=== PATIENT | male | born 1965 | race Caucasian/White ===

== ENCOUNTER 2018-02-23 11:52 | Observation (INO) ==
--- NOTE | 2018-02-23 13:33 | ED ---
HPI General Chief Complaint: Chest Pain Stated Complaint: Chest Pain Time Seen by Provider: 02/23/18 13:07 Source: patient and EMS Mode of arrival: EMS Limitations: no limitations History of Present Illness HPI narrative: 53-year-old male patient presents to the ER today for substernal 9 out of 10 chest pains nausea, and shortness of breath. He does not know of any exacerbating alleviating factors. He states he has not had similar chest pains in the past. He denies any coughing, fevers, or other symptoms Complete Quality Measures for STEMI Alert Patients Related Data Home Medications Medication Instructions Recorded Confirmed No Known Home Medications 02/23/18 02/23/18 Allergies Allergy/AdvReac Type Severity Reaction Status Date / Time No Known Allergies Allergy Verified 02/23/18 12:17 Review of Systems Except as stated in HPI: all other systems reviewed are negative [facility] Medical History Medical History Patient denies medical problems (Acute) Surgical History Surgical History No history of previous surgery (Acute) Social History Social History Substance History: No History of Abuse Second Hand Smoke Exposure: Yes Smoking Status: Current every day smoker Tobacco Type: Cigarettes How Often Do You Have a Drink Containing Alcohol: 4 or more times a week Recent Travel in [facility] within the Last 8 Weeks: No Recent Out of Country Travel within the Last 8 Weeks: No Immunization History Tetanus Immunization: Unsure Hx Influenza Vaccine This Season: No Exam Narrative Exam Narrative: GENERAL: Well-developed middle-age male patient currently in moderate distress. Awake and oriented 3. SKIN: Focused skin assessment warm/diaphoretic. HEAD: Atraumatic. Normocephalic. EYES: Pupils equal and round. No scleral icterus. No injection or drainage. ENT: No nasal bleeding or discharge. Mucous membranes pink and moist. NECK: Trachea midline. No JVD. Supple. CARDIOVASCULAR: Regular rate and rhythm. No murmur appreciated. Pulses are present and equal bilaterally. RESPIRATORY: No accessory muscle use. Clear to auscultation. Breath sounds equal bilaterally. GASTROINTESTINAL: Abdomen soft, non-tender, nondistended. Hepatic and splenic margins not palpable. MUSCULOSKELETAL: No obvious deformities. No clubbing. No cyanosis. No edema. NEUROLOGICAL: Awake and alert. No obvious cranial nerve deficits. Motor grossly within normal limits. Normal speech. PSYCHIATRIC: Appropriate mood and affect; insight and judgment normal. Course Initial Documented Vital Signs Temperature 98 F 02/23/18 12:05 Pulse Rate 86 02/23/18 12:05 Respiratory Rate 21 02/23/18 12:05 Blood Pressure 137/82 02/23/18 12:05 Pulse Oximetry 88 L 02/23/18 12:05 Last Documented Vital Signs Temperature 98 F 02/23/18 12:05 Pulse Rate 86 02/23/18 12:05 Respiratory Rate 19 02/23/18 12:26 Blood Pressure 137/82 02/23/18 12:05 Pulse Oximetry 88 L 02/23/18 12:05 Medical Decision Making MDM Narrative Medical decision making narrative: EKG shows no signs of acute ST elevations or depressions. Frequent PVCs identified. Lab work was fairly unremarkable and chest x-ray was unremarkable as well. At this point, my plan would be to admit him for further evaluation in the chest pain center. Differential Diagnosis Differential Diagnosis: ACS versus anxiety versus dysrhythmias Lab Data Lab results reviewed: Yes I reviewed the patient's lab results. Result diagrams: 02/23/18 12:25 02/23/18 12:25 Lab Results 02/23/18 02/23/18 02/23/18 Range/Units 12:25 12:25 12:25 WBC 8.5 (4.0-11.0) th/mm3 RBC 4.49 L (4.50-5.90) mil/mm3 Hgb 15.2 (13.0-17.0) gm/dL Hct 45.0 (39.0-51.0) % MCV 100.4 H (80.0-100.0) fL MCH 33.9 (27.0-34.0) pg MCHC 33.8 (32.0-36.0) % RDW 17.7 H (11.6-17.2) % Plt Count 262 (150-450) th/mm3 MPV 7.6 (7.0-11.0) fL Neut % (Auto) 62.0 (16.0-70.0) % Lymph % (Auto) 27.3 (9.0-44.0) % Cook % (Auto) 8.9 H (0.0-8.0) % Eos % (Auto) 1.2 (0.0-4.0) % Baso % (Auto) 0.6 (0.0-2.0) % Neut # (Auto) 5.3 (1.8-7.7) th/mm3 Lymph # (Auto) 2.3 (1.0-4.8) th/mm3 Cook # (Auto) 0.8 (0.0-0.9) th/mm3 Eos # (Auto) 0.1 (0.0-0.4) th/mm3 Baso # (Auto) 0.1 (0.0-0.2) th/mm3 WBC Differential . Differential Comment Auto diff final PT 10.6 (9.8-11.6) sec INR 1.0 Ratio APTT 24.5 (24.3-30.1) sec Sodium (136-145) meq/L Potassium (3.5-5.1) meq/L Chloride (98-107) meq/L Carbon Dioxide (21.0-32.0) meq/L Anion Gap (5-15) meq/L BUN (7-18) mg/dL Creatinine (0.60-1.30) mg/dL Estimated GFR (>89) mL/min Random Glucose (74-106) mg/dL Calcium (8.5-10.1) mg/dL Total Bilirubin (0.2-1.0) mg/dL AST (15-37) U/L ALT (12-78) U/L Alkaline Phosphatase (45-117) U/L Troponin I Less than 0.02 L (0.02-0.05) ng/mL Total Protein (6.4-8.2) g/dL Albumin (3.4-5.0) g/dL 02/23/18 Range/Units 12:25 WBC (4.0-11.0) th/mm3 RBC (4.50-5.90) mil/mm3 Hgb (13.0-17.0) gm/dL Hct (39.0-51.0) % MCV (80.0-100.0) fL MCH (27.0-34.0) pg MCHC (32.0-36.0) % RDW (11.6-17.2) % Plt Count (150-450) th/mm3 MPV (7.0-11.0) fL Neut % (Auto) (16.0-70.0) % Lymph % (Auto) (9.0-44.0) % Cook % (Auto) (0.0-8.0) % Eos % (Auto) (0.0-4.0) % Baso % (Auto) (0.0-2.0) % Neut # (Auto) (1.8-7.7) th/mm3 Lymph # (Auto) (1.0-4.8) th/mm3 Cook # (Auto) (0.0-0.9) th/mm3 Eos # (Auto) (0.0-0.4) th/mm3 Baso # (Auto) (0.0-0.2) th/mm3 WBC Differential Differential Comment PT (9.8-11.6) sec INR Ratio APTT (24.3-30.1) sec Sodium 135 L (136-145) meq/L Potassium 3.3 L (3.5-5.1) meq/L Chloride 99 (98-107) meq/L Carbon Dioxide 23.4 (21.0-32.0) meq/L Anion Gap 13 (5-15) meq/L BUN 5 L (7-18) mg/dL Creatinine 0.91 (0.60-1.30) mg/dL Estimated GFR 87 L (>89) mL/min Random Glucose 99 (74-106) mg/dL Calcium 8.1 L (8.5-10.1) mg/dL Total Bilirubin 0.4 (0.2-1.0) mg/dL AST 20 (15-37) U/L ALT 24 (12-78) U/L Alkaline Phosphatase 115 (45-117) U/L Troponin I (0.02-0.05) ng/mL Total Protein 6.4 (6.4-8.2) g/dL Albumin 2.9 L (3.4-5.0) g/dL Imaging Data Attestation: I personally reviewed and interpreted this imaging study as follows : Radiologist's impression: Chest X-Ray 02/23/18 13:07 CONCLUSION: Negative for acute process ECG Data EKG Prior to Arrival: Yes Attestation: I personally reviewed and interpreted this ECG as follows: Interpretation: EKG shows normal sinus rhythm with occasional PVCs, rate 96 bpm. No signs of acute ST elevations or depressions. Discharge Plan Discharge Disposition Patient Disposition: 30 Still Patient Discharge Condition Condition: Stable Discharge Details Anticipated Discharge Date: 02/23/18 Diagnosis: Chest pain Physicians Team ED Provider: Rafa Mackey Primary Care Provider: Primary Care Michelle Whitley Rxs /Orders / Referrals /Forms Prescriptions: No Action No Known Home Medications RF: 0 Discharge Instructions Patient Printed Instructions: Chest Pain (ED) Discharge Interventions Interventions: Vital Signs Last Done: 02/23/18 12:26 Status ED Status: With Doctor
[2018-02-23 13:50] LABS: Baso # (Auto) 0.1 th/mm3 (0.0-0.2); Baso % (Auto) 0.6 % (0.0-2.0); Eos # (Auto) 0.1 th/mm3 (0.0-0.4); Eos % (Auto) 1.2 % (0.0-4.0); Hemoglobin 15.2 gm/dL (13.0-17.0); Lymph # (Auto) 2.3 th/mm3 (1.0-4.8); Lymph % (Auto) 27.3 % (9.0-44.0); Mean Corpuscular HGB Conc 33.8 % (32.0-36.0); Mean Corpuscular Hemoglobin 33.9 pg (27.0-34.0); Mean Corpuscular Volume 100.4 fL (80.0-100.0); Mean Platelet Volume 7.6 fL (7.0-11.0); Mono # (Auto) 0.8 th/mm3 (0.0-0.9); Mono % (Auto) 8.9 % (0.0-8.0); Neut # (Auto) 5.3 th/mm3 (1.8-7.7); Platelet Count 262 th/mm3 (150-450); Red Blood Count 4.49 mil/mm3 (4.50-5.90); Red Cell Distribution Width 17.7 % (11.6-17.2); White Blood Count 8.5 th/mm3 (4.0-11.0)
--- NOTE | 2018-02-23 13:59 | XR ---
EXAM DATE: 02/23/2018 1:51 PM EDT AGE/SEX: 53 years / Male INDICATIONS: Left sided chest pain and shortness of breath. CLINICAL DATA: This is the patient's initial encounter. Patient reports that signs and symptoms have been present for 3 days and indicates a pain score of 5/10. MEDICAL/SURGICAL HISTORY: None. None. COMPARISON: No prior exams available for comparison. FINDINGS: A single AP view of the chest demonstrates the lungs to be symmetrically aerated without evidence of mass, infiltrate or effusion. The cardiomediastinal contours are unremarkable. Osseous structures a re intact. CONCLUSION: Negative for acute process Electronically signed by: Tom Lake MD 02/23/2018 1:57 PM EDT
[2018-02-23 14:00] LABS: Activated Partial Thrombo Time 24.5 sec (24.3-30.1); Prothrombin Time 10.6 sec (9.8-11.6)
[2018-02-23 14:18] LABS: Alanine Aminotransferase 24 U/L (12-78); Albumin 2.9 g/dL (3.4-5.0); Anion Gap 13 meq/L (5-15); Aspartate Aminotransferase 20 U/L (15-37); Blood Urea Nitrogen 5 mg/dL (7-18); Calcium 8.1 mg/dL (8.5-10.1); Carbon Dioxide 23.4 meq/L (21.0-32.0); Chloride 99 meq/L (98-107); Glomerular Filtration Rate 87 mL/min (>89); Glucose,Random 99 mg/dL (74-106); Potassium 3.3 meq/L (3.5-5.1); Sodium 135 meq/L (136-145)
[2018-02-23 14:20] LABS: Alkaline Phosphatase 115 U/L (45-117); Total Protein 6.4 g/dL (6.4-8.2)
[2018-02-23] MEDS ORDERED: Acetaminophen 500 MG Tablet PO PRN (16:34)
--- NOTE | 2018-02-23 16:34 | P.HPCA ---
History of Present Illness Primary Care Physician: No Primary Care Physician Chief Complaint: Chest pain History of Present Illness: 53-year-old male with history of hypertension (currently not taking any medications) and current smoker presents emergency room for further evaluation chest pain. Onset 7 AM. Location left anterior chest. Characterized as sharp , severe steady pain. No radiation. Associated symptoms nausea, dyspnea, diaphoresis. No particular movement or position made pain better or worse. Duration 3 hours before calling [facility]. Once [facility] arrived given 2 nitro sprays. Relief after second Nitro within a couple of minutes, stating pain went completely away. Currently reports left anterior chest pain with coughing or deep inspiration. Denies similar pain in the past. No known cardiac disease. Has not seen a primary care provider in years. No recent illness, injury, or trauma. No past cardiac testing. Family history noncontributory for early onset cardiovascular disease. - Diagnosis (1) Chest pain, atypical (2) Hypertension (3) Tobacco abuse (4) Alcohol abuse Review of Systems All other systems reviewed negative except as stated in [facility] PMF[facility] - History History Provided By: Patient, Teller Coordinator / EMT - Medical History Medical History: Medical History (Last Updated 02/23/18 @ 16:27 by JOHN Qureshi) Hypertension Patient denies medical problems - Surgical History Surgical History: Surgical History (Last Reviewed 02/23/18 @ 16:27 by JOHN Qureshi) No history of previous surgery - Tobacco History Second Hand Smoke Exposure: Yes Tobacco Use In Past 30 Days: Yes Smoking Status: Current every day smoker Tobacco Type: Cigarettes Packs Per Day: 1 Years Smoked: 20 - Alcohol History How Often Do You Have a Drink Containing Alcohol: 4 or more times a week (6-7 beers nightly) - Substance Use History Substance History: No History of Abuse - Travel History History of Recent Travel: No Recent Travel in the [place] Within the Last 8 Weeks: No Recent Travel Out of the Country Within the Last 8 Weeks: No - Immunization History Tetanus Immunization: Unsure Hx Influenza Vaccine This Season: No Medications and Allergies Active Medications: Active Medications Sodium Chloride (Ns Flush) 2 ml IV.FLUSH UNSCH PRN PRN Reason: FLUSH AFTER USING IV ACCESS Allergies Allergy/AdvReac Type Severity Reaction Status Date / Time No Known Allergies Allergy Verified 02/23/18 12:17 Home Medications Medication Instructions Recorded Confirmed Type No Known Home Medications 02/23/18 02/23/18 History Exam Vital signs: Vital Signs 02/23/18 12:05 02/23/18 12:26 02/23/18 13:16 Temperature 98 F Pulse Rate 86 Respiratory Rate 21 19 Blood Pressure 137/82 Pulse Oximetry 88 L 94 L 02/23/18 15:26 02/23/18 16:20 Temperature Pulse Rate 83 83 Respiratory Rate 16 17 Blood Pressure 149/89 H Pulse Oximetry 96 Intake & Output 02/22/18 02/23/18 02/23/18 18:59 06:59 18:59 Weight 136.078 kg Narrative: GENERAL: Alert WN, WD, NAD, pleasant, obese male, easily awakens from sleep. HEAD: NC, AT NECK: Supple, no masses, trachea midline CV: RRR, without murmur, rub, gallop, no JVD. Chest wall nontender with palpation. RESP: Diminished lungs throughout bilateral, no crackles, wheeze, rhonchi, symmetrical chest rise, nonlabored, able to speak in full sentences ABD: Soft, NT, ND, no masses, positive bowel tones EXT: Pulses +2x4, no dependent edema MS: Normal tone x4 extremities, nontender, no obvious deformities, full range of motion NEURO: CN II through CN XII grossly intact, motor strength 5/5 PSYCH: A+O x3, pleasant affect, appropriate speech, mood, insight and judgment SKIN: Normal turgor, normal texture, no lesions, no rashes, brisk cap refill, even hair distribution Results 02/23/18 12:25 02/23/18 12:25 Cardiac Enzymes 02/23/18 02/23/18 Range/Units 12:25 12:25 AST 20 (15-37) U/L Troponin I Less than 0.02 L (0.02-0.05) ng/mL Coagulation 02/23/18 Range/Units 12:25 PT 10.6 (9.8-11.6) sec APTT 24.5 (24.3-30.1) sec CBC 02/23/18 Range/Units 12:25 WBC 8.5 (4.0-11.0) th/mm3 RBC 4.49 L (4.50-5.90) mil/mm3 Hgb 15.2 (13.0-17.0) gm/dL Hct 45.0 (39.0-51.0) % Plt Count 262 (150-450) th/mm3 Neut # (Auto) 5.3 (1.8-7.7) th/mm3 Lymph # (Auto) 2.3 (1.0-4.8) th/mm3 [place] # (Auto) 0.8 (0.0-0.9) th/mm3 Eos # (Auto) 0.1 (0.0-0.4) th/mm3 Baso # (Auto) 0.1 (0.0-0.2) th/mm3 Comprehensive Metabolic Panel 02/23/18 Range/Units 12:25 Sodium 135 L (136-145) meq/L Potassium 3.3 L (3.5-5.1) meq/L Chloride 99 (98-107) meq/L Carbon Dioxide 23.4 (21.0-32.0) meq/L BUN 5 L (7-18) mg/dL Creatinine 0.91 (0.60-1.30) mg/dL Calcium 8.1 L (8.5-10.1) mg/dL AST 20 (15-37) U/L ALT 24 (12-78) U/L Alkaline Phosphatase 115 (45-117) U/L Total Protein 6.4 (6.4-8.2) g/dL Albumin 2.9 L (3.4-5.0) g/dL Intake and Output 02/23/18 02/23/18 02/23/18 06:59 14:59 22:59 Other: Weight 136.078 kg Patient Weight 02/24/18 06:59 Weight 136.078 kg EKG interpretations - EKG EKG results cardiology: sinus rhythm, normal axis, normal QRS, normal ST/T (nsr , pvc's) Caprini VTE Risk Assessment Caprini VTE Risk Assessment: No/Low Risk (score <= 1) Caprini Risk Assessment Model: Point Value = 1 Point Value = 2 Point Value = 3 Point Value = 5 Age 41-60 Minor surgery BMI > 25 kg/m2 Swollen legs Varicose veins or History of unexplained or recurrent spontaneous Oral contraceptives or hormone replacement Sepsis (< 1 month) Serious lung disease, including pneumonia (< 1 month) Abnormal pulmonary function Acute myocardial infarction Congestive heart failure (< 1 month) History of inflammatory bowel disease Medical patient at bed rest Age 61-74 Arthroscopic surgery Major open surgery (> 45 min) Laparoscopic surgery (> 45 min) Malignancy Confined to bed (> 72 hours) Immobilizing plaster cast Central venous access Age >= 75 History of VTE Family history of VTE Factor V Leiden Prothrombin [id number] Lupus anticoagulant Anticardiolipin antibodies Elevated serum homocysteine Heparin-induced thrombocytopenia Other congenital or acquired thrombophilia Stroke (< 1 month) Elective arthroplasty Hip, pelvis, or leg fracture Acute spinal cord injury (< 1 month) Prophylaxis Regimen: Total Risk Factor Score Risk Level Prophylaxis Regimen 0-1 Low Early ambulation 2 Moderate Order ONE of the following: *Sequential Compression Device (SCD) *Heparin 5000 units SQ BID 3-4 Higher Order ONE of the following medications: *Heparin 5000 units SQ TID *Enoxaparin/Lovenox 40 mg SQ daily (WT < 150 kg, CrCl > 30 mL/min) *Enoxaparin/Lovenox 30 mg SQ daily (WT < 150 kg, CrCl > 10-29 mL/min) *Enoxaparin/Lovenox 30 mg SQ BID (WT < 150 kg, CrCl > 30 mL/min) AND/OR *Sequential Compression Device (SCD) 5 or more Highest Order ONE of the following medications: *Heparin 5000 units SQ TID (Preferred with Epidurals) *Enoxaparin/Lovenox 40 mg SQ daily (WT < 150 kg, CrCl > 30 mL/min) *Enoxaparin/Lovenox 30 mg SQ daily (WT < 150 kg, CrCl > 10-29 mL/min) *Enoxaparin/Lovenox 30 mg SQ BID (WT < 150 kg, CrCl > 30 mL/min) AND *Sequential Compression Device (SCD) Assessment and Plan - Assessment (1) Chest pain, atypical Code(s): R07.89 - Other chest pain Status: Acute Plan: Admitted chest pain center. Continue ACS protocol. Will be seen evaluated by Dr. Aaliyah Ortiz. If ruled out likely will proceed with cardiac testing in a.m. This will be decided after evaluation by wet mixer. Verbalized understanding and agreeable plan of care. (2) Hypertension Code(s): I10 - Essential (primary) hypertension Status: Acute Plan: Continue to monitor. Consider initiating amlodipine 5 mg p.o. Encouraged weight loss, dietary modifications, and smoking cessation. (3) Tobacco abuse Code(s): Z72.0 - Tobacco use Status: Chronic Plan: Strongly encouraged and stressed importance of tobacco cessation. Instructed to quit smoking. (4) Alcohol abuse Code(s): F10.10 - Alcohol abuse, uncomplicated Status: Chronic Plan: Strongly encouraged to decrease alcohol intake of no more than 2 drinks daily. Ciwa protocol started. (2) Hypertension Qualifiers: Hypertension type: unspecified Qualified Code(s): I10 - Essential (primary) hypertension
[2018-02-23] MEDS ORDERED: LORazepam 1 MG Tablet PO PRN (16:36)
[2018-02-23] MEDS ORDERED: Haloperidol Inj 5 MG/ML Ampul IV.PUSH PRN (16:36)
[2018-02-23 17:20] VITALS: O2SAT 96
[2018-02-23] MEDS: Aspirin 325 MG Tablet PO SCH (17:30)
[2018-02-23 18:04] LABS: Creatine Kinase 26 U/L (39-308)
[2018-02-23 22:42] LABS: Creatine Kinase 48 U/L (39-308)
[2018-02-24] MEDS ORDERED: amLODIPine 5 MG Tablet PO ONE (03:30)
[2018-02-24] MEDS ORDERED: amLODIPine 5 MG Tablet PO SCH (09:00)
[2018-02-24] MEDS: Aspirin 325 MG Tablet PO SCH (09:25)
[2018-02-24] MEDS ORDERED: Regadenoson Inj 0.4 MG/5 ML Syringe IV.PUSH ONE (11:27)
--- NOTE | 2018-02-24 12:56 | NM ---
EXAM DATE: 02/24/2018 12:46 PM EDT AGE/SEX: 53 years / Male INDICATIONS:Angina. . Left chest pain with dyspnea, nausea and diaphoresis. CLINICAL DATA: This is the patient's initial encounter. Patient reports that signs and symptoms have been present for 1 day and indicates a pain score of 9/10. MEDICAL/SURGICAL HISTORY: Hypertension. None. COMPARISON: No prior exams available for comparison. DOSE: 11 mCi Tc 99m Myoview at rest 35 mCi [id number] at stress 0.4 mg Lexiscan STRESS SYMPTOMS: Short of breath. EJECTION FRACTION: 54 % TECHNIQUE: The patient underwent pharmacologic stress with infusion of prescribed dose. Continuous ECG tracing was monitored during stress. Gated SPECT imaging was performed after stress and conventi onal SPECT imaging was performed at rest. The examination was performed on a SPECT/CT scanner, both attenuation and non-corrected datasets were reviewed. FINDINGS: Distribution: The maximum perfused segment at stress is in the septal and anterolateral alejandre. Perfusion Study: The pattern of perfusion at stress is within normal limits. Gated Study: There are intact wall motion and wall thickening without hypokinetic or dyskinetic segm ents. The ejection fraction is calculated at 54%. RISK CATEGORY: Low (<1% Annual Motality Rate) CONCLUSION: 1. Unremarkable myocardial perfusion. 2. No evidence of fixed or reversible perfusion abnormalities. 3. Well-preserved wall motion and ejection fraction. Electronically signed by: Eduin Benavidez MD 02/24/2018 12:55 PM EDT
[2018-02-24 22:26] VITALS: BP 176/96; PULSE 89; RESP 18; TEMP 97.9
--- NOTE | 2018-02-25 08:46 | ECG ---
Date Performed: 02/23/2018 Time Performed: 20:59:56 PTAGE: 53 years EKG: Sinus rhythm NORMAL ECG PREVIOUS TRACING : 02/23/2018 18.01 Since previous tracing, no significant change noted DOCTOR: Delvin Wade Interpretating Date/Time 02/25/2018 08:45:03
--- NOTE | 2018-02-25 09:05 | ECG ---
Date Performed: 02/23/2018 Time Performed: 12:14:15 PTAGE: 53 years EKG: Sinus rhythm WITH FREQUENT VENTRICULAR PREMATURE COMPLEXES ABNORMAL RHYTHM ECG NO PREVIOUS TRACING DOCTOR: Delvin Wade Interpretating Date/Time 02/25/2018 09:03:15
--- NOTE | 2018-02-25 09:05 | ECG ---
Date Performed: 02/23/2018 Time Performed: 18:01:41 PTAGE: 53 years EKG: Sinus rhythm NORMAL ECG PREVIOUS TRACING : 02/23/2018 12.14 Since previous tracing, no significant change noted DOCTOR: Delvin Wade Interpretating Date/Time 02/25/2018 09:02:32
--- NOTE | 2018-02-25 09:10 | TR ---
Date Performed: 02/24/2018 Time Performed: 11:27:34 DOCTOR: Delvin Wade DRUG LIST: CLINICAL HISTORY: REASON FOR TEST: REASON FOR ENDING: OBSERVATION: CONCLUSION: COMMENTS: Lexiscan stress test was performed under standard four minute protocol. Radionuclide was injected one minute prior to ending the test. No electrocardiographic abormalities were present t o suggest ischemia. Nuclear imaging and interpretation are pending.
== END 2018-02-24 15:01 | disposition home or self-care (01) ==
LOC: NEDA 11:52 → NEPFCDU 11:52 → NEPC 11:52 → NEPFCDU 18:08
PROVIDERS: ADMIT Internal Medicine Cardiovascular Disease; ATTEND Internal Medicine Cardiovascular Disease
DX: R07.89 Other chest pain; F17.210 Nicotine dependence, cigarettes, uncomplicated; F10.10 Alcohol abuse, uncomplicated; R06.00 Dyspnea, unspecified; I10 Essential (primary) hypertension; R11.0 Nausea; R61 Generalized hyperhidrosis